=== PATIENT | female | born 1945 | race Caucasian/White ===

== ENCOUNTER 2018-05-13 20:19 | Emergency (ER) | payer OTHER, BC ==
[2018-05-13] MEDS: ACETAMINOPHEN 325 MG TAB PO (21:26)
== END 2018-05-13 22:43 | disposition home or self-care (01) ==
LOC: FTE 22:43
DX: S52.501A Unspecified fracture of the lower end of right radius, initial encounter for closed fracture (principal); S52.611A Displaced fracture of right ulna styloid process, initial encounter for closed fracture; W01.0XXA Fall on same level from slipping, tripping and stumbling without subsequent striking against object, initial encounter; Y92.9 Unspecified place or not applicable
CPT/HCPCS: 29125; 73110-RT; 99283-25